=== PATIENT | male | born 1995 | race Caucasian/White ===

== ENCOUNTER 2021-04-06 23:18 | Emergency (ER) | payer OTHER ==
[2021-04-07 01:15] LABS: HEMOGLOBIN 14.6 gm/dl (14.0-17.5); RED BLOOD COUNT 4.93 M/UL (4.20-5.50); WHITE BLOOD COUNT 7.4 K/UL (4.5-11.0)
[2021-04-07 01:37] LABS: BUN/CREATININE RATIO 14 (0-10)
== END 2021-04-07 03:50 | disposition home or self-care (01) ==
LOC: ER1 23:18
PROVIDERS: Emergency Medicine
DX: J02.9 Acute pharyngitis, unspecified (principal); F17.200 Nicotine dependence, unspecified, uncomplicated; Z20.822 Contact with and (suspected) exposure to COVID-19
CPT/HCPCS: 71045; 80053; 81001; 83605; 85025; 87040; 87081; 87880; 99283; J7030; U0002